=== PATIENT | female | born 1965 | race Caucasian/White ===

== ENCOUNTER → 2020-06-26 02:13 | Outpatient (CLI) | payer BC, SELFPAY ==
[2020-06-26 22:46] LABS: SARS-CoV-2 RNA PCR Negative
== END ==
PROVIDERS: Visit Provider Urology
DX: Z01.812 Encounter for preprocedural laboratory examination (principal); Z20.822 Contact with and (suspected) exposure to COVID-19
CPT/HCPCS: C9803; U0003; U0005

== ENCOUNTER 2020-06-26 14:41 | Outpatient (CLI) | payer BC, SELFPAY ==
--- NOTE | ~2020-06-26 | MR_ITS ---
EXAMINATION: MR foot RT wo con DATE: 06/26/2020 15:51 INDICATION: Chronic right foot pain. TECHNIQUE: Magnetic resonance imaging (MRI) of the right foot was performed without intravenous contr ast. Sequences included sagittal T1-weighted FSE and STIR FSE, long-axis PD-weighted FS FSE and PD-we ighted FSE, and short-axis PD-weighted FS FSE and T1-weighted FSE. COMPARISON: None FINDINGS: Bone alignment is normal. There is bone marrow edema in second proximal phalanx with surrou nding soft tissue swelling. There is moderate osteoarthritis of second tarsometatarsal joint and mild osteoarthritis of many of the other tarsometatarsal joints. There is moderate osteoarthritis of firs t metatarsophalangeal joint and mild osteoarthritis of some of the interphalangeal joints. Lisfranc l igament is intact. The flexor and extensor tendons are normal. There is variable fatty atrophy of all of the musculature. IMPRESSION: 1. Bone marrow edema in second proximal phalanx without visible fracture line, likely stress reaction . 2. Polyarticular osteoarthritis. Reviewed, dictated and finalized at location A. OL DRIVER IMPRESSION: 1. Bone marrow edema in second proximal phalanx without visible fracture line, likely stress reaction. 2. Polyarticular osteoarthritis.
== END 2020-06-26 14:42 ==
LOC: MICIMG 14:42
PROVIDERS: Visit Provider Podiatrist Foot & Ankle Surgery
DX: M19.071 Primary osteoarthritis, right ankle and foot (principal)
CPT/HCPCS: 73718

== ENCOUNTER 2020-06-29 01:13 | Day surgery (SDC) | payer BC, SELFPAY ==
--- NOTE | 2020-06-23 09:51 | PM.IMHP ---
H&P: HPI History of Present Illness Date/Time: 06/23/20 09:51 Chief Complaint: overactive bladder Narrative: Vickie Rick is a 55 year old female with overactive bladder and a successful InterStim trial with greater than 50% improvement in symptoms Review of Systems Review of Systems: All systems reviewed & are unremarkable except as noted in HPI and below PMFSH Past Medical History Medical History (Updated 06/23/20 @ 09:52 by Josue Kahn MD) URIOSTEGUI (dyspnea on exertion) Dyslipidemia Essential hypertension Obstructive sleep apnea Pulmonary hypertension Surgical History Surgical History (Updated 04/21/19 @ 15:22 by Savanna Ashton CMA) H/O tubal ligation History of carpal tunnel release History of cholecystectomy History of ear surgery Family History Family History (Updated 11/05/17 @ 14:54 by DOCTOR UNKNOWN) Mother Hypertension Family history of lung cancer Family history of malignant neoplasm of bone Father Family history of malignant neoplasm of breast in first degree relative Social History Social History Smoking status: Never smoker Alcohol intake: current Meds Home Medications and Allergies Home Medications Medication Instructions Recorded Confirmed Type mirabegron 50 mg tablet,extended 50 mg PO DAILY 12/08/19 06/21/20 History release 24 hr Allergies Allergy/AdvReac Type Severity Reaction Status Date / Time acetaminophen Allergy Severe MIGRAINES Verified 06/21/20 13:48 propranolol Allergy Severe SHAKES, Verified 06/21/20 13:48 NAUSEA AND VOMITING hydrocodone Allergy Mild Nausea Verified 06/21/20 13:48 propoxyphene Allergy Mild WORSENED Verified 06/21/20 13:48 HEADACHE sumatriptan Allergy Mild Nausea Verified 06/21/20 13:48 Beta-Blockers Allergy Unknown PROPRANOLOL-WORSENED Verified 06/21/20 13:48 (Beta-Adrenergic Bloc HEADACHE butorphanol Allergy Unknown Unknown Verified 06/21/20 13:48 meperidine Allergy Unknown Nausea Verified 06/21/20 13:48 rizatriptan Allergy Unknown Nausea Verified 06/21/20 13:48 Exam Const: General: cooperative HENMT: Head: normal to inspection Face and sinus: normal facial exam Eyes: General: appearance normal, both eyes and all related structures Neck: Neck: normal visual inspection Resp: Effort & Inspection: normal respiratory effort and able to speak in complete sentences GI: Inspection: normal to inspection Skin: General skin exam: normal color Neuro: General: patient oriented x3 Assessment and Plan Assessment and plan (1) Overactive bladder: Code(s): N32.81 - Overactive bladder Status: Acute Assessment and Plan: InterStim implant
[2020-06-25 16:16] VITALS: BMI 45.7
--- NOTE | ~2020-06-29 | XR_ITS ---
EXAMINATION: XR fl neurostim insert<1hr EXAM DATE: 06/29/2020 11:10 INDICATION: InterStim phase I and 2. TECHNIQUE: Fluoroscopy used during XR fl neurostim insert<1hr performed by Dr. Josue Kahn MD . The DAP for this procedure was 1.24 mGym2. FINDINGS: Frontal image demonstrates a neural stimulator lead projecting through sacral neural kurt jordy, could be right S3-4 assuming side marker is correct. Correlate with procedure note. IMPRESSION: Fluoroscopy used during XR fl neurostim insert<1hr. Reviewed, dictated and finalized at location B. ASS TRIMMER
--- NOTE | 2020-06-29 07:17 | WPDHPUPDATE1 ---
History and Physical Update Update Date/Time: 06/29/20 07:17 History and Physical has been reviewed, including an updated exam of the patient. There are NO changes in the patient's condition. Risks, benefits, and alternatives have been discussed and questions answered. Patient agrees to proceed with procedure.
--- NOTE | 2020-06-29 08:28 | WPDANESEPPF ---
Anes - Initial Pre Proc Eval Procedure: Operation Date: 06/29/20 10:15 Proposed Procedures p Interstim Phase One and Two Combined - Josue Kahn MD Date/Time: 06/29/20 08:28 Surgeon: Josue Kahn MD Pre Op Diagnosis: overactive bladder Patient Data Age: 55 Gender: F Height: 1.57 m Weight: 113.4 kg Allergies Allergy/AdvReac Type Severity Reaction Status Date / Time acetaminophen Allergy Severe MIGRAINES Verified 06/29/20 08:29 propranolol Allergy Severe SHAKES, Verified 06/29/20 08:29 NAUSEA AND VOMITING hydrocodone Allergy Mild Nausea Verified 06/29/20 08:29 propoxyphene Allergy Mild WORSENED Verified 06/29/20 08:29 HEADACHE sumatriptan Allergy Mild Nausea Verified 06/29/20 08:29 Beta-Blockers Allergy Unknown PROPRANOLOL-WORSENED Verified 06/29/20 08:29 (Beta-Adrenergic Bloc HEADACHE butorphanol Allergy Unknown Unknown Verified 06/29/20 08:29 meperidine Allergy Unknown Nausea Verified 06/29/20 08:29 rizatriptan Allergy Unknown Nausea Verified 06/29/20 08:29 Home Medications Medication Instructions Recorded Confirmed Type mirabegron 50 mg tablet,extended 50 mg PO DAILY 12/08/19 06/25/20 History release 24 hr omeprazole 40 mg PO DAILY 06/25/20 06/25/20 History Patient hx anesthesia problems: none Family hx anesthesia problems: none PMFSH Past Medical History Medical History (Updated 06/29/20 @ 08:30 by Oliver Smith MD) Depression URIOSTEGUI (dyspnea on exertion) Dyslipidemia Essential hypertension Morbid obesity with BMI of 50.0-59.9, adult Obstructive sleep apnea Pulmonary hypertension Ulcerative colitis Surgical History Surgical History (Updated 04/21/19 @ 15:22 by Savanna Ashton CMA) H/O tubal ligation History of carpal tunnel release History of cholecystectomy History of ear surgery Family History Family History (Updated 11/05/17 @ 14:54 by DOCTOR UNKNOWN) Mother Hypertension Family history of lung cancer Family history of malignant neoplasm of bone Father Family history of malignant neoplasm of breast in first degree relative Social History Social History Smoking status: Never smoker Alcohol intake: current Living arrangements: with family Spiritual care concerns: No Anes - Eval Final PreProcedure Day of Procedure 06/29/20 08:28 Patient weight: morbidly obese Heart: regular rate and rhythm Lungs: clear to auscultation and normal air movement Airway: Mallampati scale class II Neurological: alert and oriented Last oral intake: >/= 8 hours ASA classification: III Emergent: no Anesthetic plan: proceed Anesthesia type and monitoring: general LMA and ETT Informed Consent: The patient's anesthetic plan and its attendant risks and benefits were discussed with the patient/family/POA. Questions were solicited and answers provided to the satisfaction of the patient/family/POA.
[2020-06-29] MEDS: KETOROLAC 30 MG/ML VIAL (*BKC) IV PUSH (08:54)
[2020-06-29] MEDS: LACTATED RINGERS 1,000 ML 30 ML IV CONT ×2 (08:57→11:35)
[2020-06-29 09:10] VITALS: BP 112/95; PULSE 71; RESP 18; TEMP 36.7; O2SAT 97
[2020-06-29] MEDS: ceFAZolin 2 GM/D5W 50 ML 2 GM/50 ML BAG IVPB (10:35)
[2020-06-29] MEDS: ceFAZolin SODIUM 1 GM VIAL IV PUSH (10:35)
[2020-06-29] MEDS: BUPIVACAINE/EPINEPHRINE 0.25% 50 ML VIAL 20 ML INFILTRATE (10:51)
--- NOTE | 2020-06-29 11:24 | PM.PROC ---
Procedure Note - Detailed Date of procedure: 06/29/20 Pre-op diagnosis: overactive bladder Procedure performed: Placement of sacral Fluoroscopic guidance for needle placement Placement of implantable pulse generator Complex neurostimulator programming and impedance check Description of procedure: This patient has undergone a successful InterStim trial. He presents today for placement of a permanent device. Understanding the risks of bleeding, infection, lack of efficacy, need for repeat procedures, need for revision. They agree to proceed Dear correctly identified and informed consent was obtained. There brought to the operating room. Placed in the prone position. There given appropriate anesthesia. There prepped and draped in a sterile fashion. A time-out performed. I used fluoroscopy to identify my sacral landmarks in the AP and lateral orientation. I anesthetized the skin. I into the sacral foramen on the left and the right. I monitored the needle fluoroscopy. I entered right and left S3 foramen. I stimulated the needle and got appropriate response at low thresholds. I made a skin willam. I placed a stylet and the lead introducer sheath. I then placed and deployed by lead again under fluoroscopy. I marked out the site of the future pulse generator. I anesthetized the skin. I made an incision. I created a subcutaneous pocket. I obtained hemostasis. I irrigated out the wound. I then tunneled the lead towards this pocket. Appropriate connections were made between the lead and battery. The battery was programmed. It was placed in the pocket. Impedances were checked and found to be normal. I once again assured hemostasis. I irrigated out all wounds. I closed the subcu with 2 0 Vicryl. Skin with 4 0 Vicryl. Glue was applied. They were then awakened and transferred to the PACU in stable condition. Implants: Neuromodulation device Anesthesia: MAC and local Surgeon: Josue Kahn MD Drains: No Packing: No Pathology: none sent Complications: No immediate complications Condition: stable Disposition: PACU
[2020-06-29 11:35] VITALS: BP 118/69; PULSE 80; RESP 19; O2SAT 95
[2020-06-29 12:05] VITALS: BP 164/75; PULSE 63; RESP 16; O2SAT 93
[2020-06-29 12:35] VITALS: BP 134/58; PULSE 66; RESP 16; O2SAT 94
[2020-06-29] MEDS: oxyCODONE HCL (*CRX) 5 MG TAB IR PO (12:38)
[2020-06-29 13:00] VITALS: BP 161/82; PULSE 55; RESP 16
--- NOTE | 2020-06-29 13:08 | SUR.PHASEII ---
SKID ADZER FROM INTERSTIM INSTRUCTED PATIENT.
== END 2020-06-29 13:09 | disposition home or self-care (01) ==
PROVIDERS: Visit Provider Urology
PROC: (CPT 64581; principal; 2020-06-29 10:15)
DX: N32.81 Overactive bladder (principal); I10 Essential (primary) hypertension; E78.5 Hyperlipidemia, unspecified; G47.33 Obstructive sleep apnea (adult) (pediatric); I27.20 Pulmonary hypertension, unspecified; K51.90 Ulcerative colitis, unspecified, without complications; E66.01 Morbid (severe) obesity due to excess calories; Z68.43 Body mass index [BMI] 50.0-59.9, adult
CPT/HCPCS: 64581; 64590; A9270; C1767; C1778; C1787; J0131; J0690; J1100; J1885; J2250; J2405; J2704; J3010; J7120

== ENCOUNTER 2020-07-13 18:11 | Emergency (ER) | payer BC, SELFPAY ==
--- NOTE | ~2020-07-13 | CT_ITS ---
EXAMINATION: CT brain wo con EXAM DATE: 07/13/2020 18:56 INDICATION: Dizziness. Headaches. TECHNIQUE: Spiral CT of the head was performed without contrast. Axial, coronal and sagittal images were reviewed. The dose-length product (DLP) for this examination was 605.33 mGy-cm. The exposure w as tailored according to patient size, and iterative reconstruction (ASIR) was used as additional dos e reduction technique. Comparison is made to prior examination from 09/02/2017. FINDINGS: There is no acute intraparenchymal hemorrhage. No evidence of intraparenchymal brain mass lesion. No evidence of acute infarction. There is no mass effect or midline shift. The ventricles are normal in size. There are no extra-axial collections. There are no acute calvarial fractures. T he orbits are unremarkable. Soft tissue is unremarkable. Mild mucoperiosteal thickening. There is no interval change. IMPRESSION: 1. Unremarkable head CT examination. Reviewed, dictated and finalized at location A.
--- NOTE | ~2020-07-13 | XR_ITS ---
EXAMINATION: XR chest 1V portable EXAM DATE: 07/13/2020 18:51 INDICATION: Dizziness. TECHNIQUE: Portable AP frontal chest x-ray was obtained. Comparison is made to prior examination from 02/15/2019. FINDINGS: Mild cardiomegaly and pulmonary vascular congestion. No confluent consolidation, pneumothor ax or pleural effusion suspected. There are no osseous abnormalities identified. IMPRESSION: Cardiomegaly, pulmonary vascular congestion. Reviewed, dictated and finalized at location A.
[2020-07-13 18:25] VITALS: BP 182/82; PULSE 74; RESP 18; TEMP 36.4; O2SAT 98
--- NOTE | 2020-07-13 18:29 | ECG_ITS ---
Measurements Intervals [place] Rate: 74 P: 51 HI: 184 QRS: -1 QRSD: 89 T: 3 QT: 401 QTc: 445 Interpretive Statements SINUS RHYTHM VOLTAGE CRITERIA FOR LVH BASELINE ARTIFACT- III, AVF, V5 BORDERLINE ECG Electronically Signed On 07-13-2020 18:44:23 CDT by Rober Munguia D.O.
[2020-07-13 18:30] VITALS: BP 182/82; PULSE 76; RESP 18; TEMP 36.3; O2SAT 98
[2020-07-13 18:48] LABS: Basophils Absolute Auto 0.1 K/mm3 (0.0-0.1); Basophils Percent Auto 0.7 % (0.2-1.2); Eosinophils Absolute Auto 0.3 K/mm3 (0-0.3); Eosinophils Percent Auto 3.4 % (0-4.4); Hematocrit 44.7 % (37.0-47.0); Hemoglobin 14.4 g/dL (12.0-15.0); Immature Granulocyte Absolute 0.12 K/mm3 (0.00-0.031); Immature Granulocyte Percent A 1.5 % (0-0.5); Lymphocytes Absolute Auto 2.56 K/mm3 (0.9-3.2); Lymphocytes Percent Auto 31.2 % (18.3-44.2); Mean Corpuscular HGB Conc 32.2 g/dl (32-36); Mean Corpuscular Hemoglobin 30.3 pg (26-34); Mean Corpuscular Volume 94.1 fl (80-100); Mean Platelet Volume 9.7 fl (7.4-10.4); Monocytes Absolute Auto 0.6 K/mm3 (0.1-0.6); Monocytes Percent Auto 6.8 % (2.6-8.5); Neutrophils Absolute Auto 4.6 K/mm3 (1.3-6.7); Neutrophils Percent Auto 56.4 % (45.5-73.1); Platelet Count Result 225 k/mm3 (150-375); Red Blood Count 4.75 M/mm3 (4.2-5.4); Red Cell Distribution Width 13.4 % (11.5-14.5); White Blood Count 8.2 K/mm3 (4.5-10.0)
--- NOTE | 2020-07-13 18:58 | PC.NURSE ---
patient to CT
[2020-07-13 19:15] LABS: Alanine Aminotransferase 34 U/L (4-35); Albumin Level 3.8 g/dL (3.5-5.1); Alkaline Phosphatase 95 U/L (38-126); Anion Gap 5 mmol/L (8-16); Aspartate Amino Transferase 29 U/L (14-36); Bilirubin,Total 0.3 mg/dL (0.2-1.3); Blood Urea Nitrogen 18 mg/dL (7-17); Calcium 8.8 mg/dL (8.4-10.2); Carbon Dioxide 27 mmol/L (22-30); Chloride 106 mmol/L (98-107); Estimated CRCL calculation 91 ml/min; Estimated Glomerular Filt Rate > 60; Glucose 108 mg/dL (65-105); Potassium 3.8 mmol/L (3.4-5.0); Sodium 138 mmol/L (137-145)
--- NOTE | 2020-07-13 19:19 | PC.NURSE ---
Report received from CORTNEY Persaud. Assumed care of patient at this time.
--- NOTE | 2020-07-13 19:25 | ED.DIZZY ---
HPI - Dizziness General Chief Complaint: Dizziness Stated Complaint: dizziness/nausea/cough Time Seen by Provider: 07/13/20 18:20 Source: patient, family and RN notes reviewed Mode of arrival: ambulatory Limitations: no limitations History of Present Illness HPI Narrative: Patient is 55 years old white female present with dizziness, nausea and vomiting, intermittent, 1 week ago, was getting better then got worse today. Patient reports that everything fingers spans when she move, get better at rest. Patient also complaining of productive cough with green sputum for 1-1/2-week. Patient status post second dose of Pfizer vaccine 1 week ago. History of GERD, patient does not smoke or drink or uses drugs. Patient denies any fever, chills, chest pain, shortness of breath, back pain, urinary symptoms. Patient reports a history of vertigo years ago. Related Data Home Medications Medication Instructions Recorded Confirmed mirabegron 50 mg tablet,extended 50 mg PO DAILY 12/08/19 06/29/20 release 24 hr omeprazole 40 mg PO DAILY 06/25/20 06/29/20 Allergies Allergy/AdvReac Type Severity Reaction Status Date / Time propranolol Allergy Severe SHAKES, Verified 07/13/20 18:49 NAUSEA AND VOMITING hydrocodone Allergy Mild Nausea Verified 07/13/20 18:49 propoxyphene Allergy Mild WORSENED Verified 07/13/20 18:49 HEADACHE sumatriptan Allergy Mild Nausea Verified 07/13/20 18:49 Beta-Blockers Allergy Unknown PROPRANOLOL-WORSENED Verified 07/13/20 18:49 (Beta-Adrenergic Bloc HEADACHE butorphanol Allergy Unknown Unknown Verified 07/13/20 18:49 meperidine Allergy Unknown Nausea Verified 07/13/20 18:49 rizatriptan Allergy Unknown Nausea Verified 07/13/20 18:49 Review of Systems Review of Systems: Narrative: CONSTITUTIONAL: Denies fever, chills, or sweats. EYES: Denies visual changes, redness, or discharge. ENT: Denies rhinorrhea, congestion, sore throat, or otalgia. CARDIOVASCULAR: Denies chest pain, palpitations, or edema. RESPIRATORY: Denies cough or dyspnea. GASTROINTESTINAL: Denies abdominal pain, nausea, vomiting, or diarrhea. GENITOURINARY: Denies dysuria or hematuria. SKIN: Denies rash or itching. MUSCULOSKELETAL: Denies back pain, joint pain, or myalgia. NEUROLOGIC: Denies headache, numbness, or weakness. PSYCHIATRIC: Denies anxiety or depression. PMFSH Past Medical History Medical History Depression URIOSTEGUI (dyspnea on exertion) Dyslipidemia Essential hypertension Morbid obesity with BMI of 50.0-59.9, adult Obstructive sleep apnea Pulmonary hypertension Ulcerative colitis Surgical History Surgical History H/O tubal ligation History of carpal tunnel release History of cholecystectomy History of ear surgery Family History Family History Mother Hypertension Family history of lung cancer Family history of malignant neoplasm of bone Father Family history of malignant neoplasm of breast in first degree relative Social History Social History Smoking status: Never smoker Alcohol intake: current Spiritual care concerns: No Exam Narrative: Exam Narrative: General appearance: Well-developed, well-nourished Skin: Normal color Head: Normocephalic, nontraumatic Eyes: Clear conjunctiva ENT: Oropharynx normal, ears normal, nose normal, maxillary facial tenderness Neck: Supple, nontender Chest and respiratory: Airway patent, no respiratory distress, no accessory muscle use Heart: Regular rate/rhythm Abdomen: Soft, nontender, no organomegaly, quiet bowel sounds Vascular: Normal peripheral pulses, normal capillary refill. Musculoskeletal: Normal range of motion, nontender back Neurologic: Alert and oriented ?3, VENEER MANUFACTURER is normal as tested, no gross motor deficit
[2020-07-13 19:26] LABS: Troponin I < 0.012 ng/mL (0.000-0.034)
[2020-07-13 19:27] VITALS: BP 162/76; PULSE 70
[2020-07-13 19:29] VITALS: BP 188/87; PULSE 70
[2020-07-13 19:32] VITALS: BP 203/95; PULSE 72
[2020-07-13] MEDS: ONDANSETRON INJ 4 MG/2 ML VIAL IV PUSH (19:40)
[2020-07-13] MEDS: MECLIZINE HCL 25 MG TABLET PO (19:40)
[2020-07-13] MEDS: diazePAM INJ (*CRX) 10 MG/2 ML SYRINGE 5 MG IV PUSH (19:41)
[2020-07-13 20:06] LABS: Add Urine Microscopic? YES; Appearance Urine Clear (Clear); Bilirubin Urine Negative (Negative); Blood Urine Negative (Negative); Color Urine Yellow (Yellow); Glucose Urine UA Negative (Negative); Ketones Urine Negative (Negative); Leukocyte Esterase Ur Trace LEU/UL (Negative); Mucus Urine Rare /lpf; Nitrate Urine Negative (Negative); Protein Urine Negative (Negative); Specific Grav Ur 1.014 (1.001-1.035); Squamous Epithelial Cell Urine Rare /hpf (Few); Urobilinogen Urine Negative mg/dL (<2.0)
[2020-07-13 20:18] LABS: Amphetamine Screen Urine Negative (Negative); Barbiturate Screen Urine Negative (Negative); Benzodiazepines Screen Urine Negative (Negative); Cannabinoid Screen Urine Negative (Negative); Cocaine Screen Urine Negative (Negative); Methadone Screen Urine Negative (Negative); Opiate Screen Urine Negative (Negative); Phencyclidine Screen Urine Negative (Negative)
[2020-07-13 20:45] VITALS: BP 105/74; PULSE 71; RESP 20; O2SAT 97
== END 2020-07-13 20:55 | disposition home or self-care (01) ==
PROVIDERS: Emergency Provider Emergency Medicine; PCP Family Medicine
DX: R42 Dizziness and giddiness (principal); J01.00 Acute maxillary sinusitis, unspecified; K21.9 Gastro-esophageal reflux disease without esophagitis; I10 Essential (primary) hypertension; E78.5 Hyperlipidemia, unspecified; G47.33 Obstructive sleep apnea (adult) (pediatric); I27.20 Pulmonary hypertension, unspecified; F41.9 Anxiety disorder, unspecified; F32.9 Major depressive disorder, single episode, unspecified; R94.31 Abnormal electrocardiogram [ECG] [EKG]
CPT/HCPCS: 36415; 70450; 71045; 80053; 80307; 81001; 84484; 85025; 93005; 96374; 96375; 99284; A9270; J2405; J3360

== ENCOUNTER 2021-04-08 09:32 | Outpatient (CLI) | payer BC, SELFPAY ==
--- NOTE | 2021-04-08 09:41 | ECHO_ITS ---
Patient Info Name: Vickie Rick Age: 55 years : 1965 Gender: Female Ht: 62 in Wt: 255 lbs BSA: 2.32 m2 HR: 90 bpm BP: 155 / 112 mmHg Technical Quality: Fair Exam Date: 04/08/2021 9:54 AM Exam Location: [facility] Patient Status: Outpatient Admit Date: 04/08/2021 Staff Ordering Physician: Rober Munugia DO [employer] Farmworker: Alexandrea Go RDCS Attending Provider: Rober Munguia DO Referring Physician: Ezra LONGORIA; Exam Type: CA echo doppler color flow Study Info Indications R06.00 - Dyspnea, unspecified Complete two-dimensional, color flow and Doppler transthoracic echocardiogram is performed. Summary 1. Complete two-dimensional, color flow and Doppler transthoracic echocardiogram is performed. 2. Left ventricular chamber dimension is normal. 3. Left ventricular systolic function is normal, estimated at 55-60%. 4. The left ventricular diastolic function is grade I diastolic dysfunction. 5. E/e' 15 is elevated. 6. Left atrial chamber dimension is mildly enlarged. 7. No pulmonary hypertension, estimated pulmonary arterial systolic pressure is 32 mmHg. Left Ventricle E/e' 15 is elevated. Left ventricular chamber dimension is normal. Left ventricular systolic function is normal, estimated at 55-60%. The left ventricular diastolic function is grade I diastolic dysfunction. Right Ventricle Right ventricular systolic function is normal and with normal TAPSE 2.0 cm. Right ventricular chamber dimension is normal. Left Atria Left atrial chamber dimension is mildly enlarged. Right Atria Right atrial chamber dimension is normal. Aortic Valve The aortic valve is trileaflet. There is no aortic valve stenosis. There is no aortic valve regurgitation. Pulmonic Valve There is no pulmonic regurgitation. Mitral Valve There is no mitral valve stenosis. There is no mitral valve regurgitation. Tricuspid Valve There is no tricuspid valve regurgitation. No pulmonary hypertension, estimated pulmonary arterial systolic pressure is 32 mmHg. Pericardium/Pleural There is no pericardial effusion. Inferior Vena Cava Normal inferior vena cava with >50% collapse upon inspiration consistent with normal right atrial pressure, 5 mmHg. Aorta The aortic root size at the sinus of Valsalva is normal. Left Ventricular Outflow Tract Name Value Normal LVOT 2D LVOT Diameter 2.0 cm LVOT Doppler LVOT Peak Gradient 5 mmHg LVOT Mean Gradient 3 mmHg LVOT VTI 25 cm LVOT VTI/AV VTI Ratio 0.8 LVOT Stroke Volume 75 ml LVOT CO 5.4 l/min LVOT CI 2.3 l/min/m2 Pulmonic Valve Name Value Normal RVOT Doppler RVOT Peak Gradient 2
== END 2021-04-08 09:33 | disposition home or self-care (01) ==
LOC: ANHCARD 09:35
PROVIDERS: PCP Internal Medicine Gastroenterology; Visit Provider Internal Medicine Cardiovascular Disease
DX: R06.00 Dyspnea, unspecified (principal)
CPT/HCPCS: 93306

== ENCOUNTER 2024-12-20 15:32 | Outpatient (CLI) | payer OTHER, SELFPAY ==
--- NOTE | ~2024-12-20 | XR_ITS ---
EXAMINATION: XR lumbar spine 2-3V DATE: 12/20/2024 15:57 INDICATION: Chronic lower back pain TECHNIQUE: 3 images of the lumbar spine were obtained. COMPARISON: None. FINDINGS: Right-sided generator with lead projecting over the right hemipelvis. Cholecystomy clips are present. There is bowel gas and stool projecting over the pelvis which limits evaluation. There are a few less than 1.0 cm calcifications projecting over the pelvis which may represent phleboliths, however, a distal ureteral stone or bladder stone or possible. Lumbar vertebral body heights are within normal limits. No compression fracture in the lumbar spine. Grade 1 anterolisthesis of L4 on L5. Grade 1 retrolisthesis of L5 on S1. Moderate degenerative change in the mid and lower lumbar facet joints. Moderate joint space narrowing at the L5-S1 level. Mild joint space narrowing at the L4-L5 level. Bones appear osteopenic. There is a 2.8 cm lucency projecting over a femoral head seen in the cone-down lumbosacral view. Differential includes artifact from overlapping structures versus lytic bone lesion. IMPRESSION: 1. No compression fracture in the lumbar spine. 2. Grade 1 anterolisthesis of L4 on L5. 3. Grade 1 retrolisthesis of L5 on S1. 4. Moderate degenerative change in the mid and lower lumbar spine. 5.There is a 2.8 cm lucency projecting over a femoral head seen in the cone-down lumbosacral view. Differential includes artifact from overlapping structures versus lytic bone lesion. Dedicated x-rays of the femurs is recommended. If symptoms persist or worsen, consider a CT of the lumbar spine for further assessment. Reviewed, dictated and finalized at location Q. IMPRESSION: 1. No compression fracture in the lumbar spine. 2. Grade 1 anterolisthesis of L4 on L5. 3. Grade 1 retrolisthesis of L5 on S1. 4. Moderate degenerative change in the mid and lower lumbar spine. 5.There is a 2.8 cm lucency projecting over a femoral head seen in the cone-cristian n lumbosacral view. Differential includes artifact from overlapping structures versus lytic bone lesion. Dedicated x-rays of the femurs is recommended. If symptoms persist or worsen, consider a CT of the lumbar spine for further as sessment.
--- OUTSIDE RECORDS SUMMARY | 2024-12-20 15:36 | XMS_ITS | Clinical Summary ---
Author Organization [facility] Address [address] [place] [address] Phone Care Team Providers Care Factory Worker Name Role Phone Unavailable Primary Care Provider Unavailabl e Encounters Date Type Department Care Team Description 12/11/2024 5:02 PM CDT - 12/11/2024 5:22 PM CDT Emergency [facility] [address] [id number] Discharge Disposition: Left without being seen from Last 3 Months Social History Tobacco Use Types Packs/Day Years Used Date Smoking Tobacco: Never Assessed Comments Unknown Sex and Gender Information Value Date Recorded Sex Assigned at Not on file Legal Sex Female 1:59 PM CDT Gender Identity Not on file Sexual Orientation Not on file Plan of Treatment Health Maintenance Due Date Last Done Comments Pre-Diabetes and Diabetes Screening 1965 DTAP/TDAP/TD VACCINES (1 - Tdap) 1982 HPV/Cotest (21-29) 1984 CERVICAL CANCER SCREENING 1993 HPV/Cotest (30-65) 1993 PAP SMEAR 1993 BREAST CANCER SCREENING 2003 COLORECTAL SCREENING 2008 Colorectal Cancer Screening 2008 FIT-DNA Q 3 years 2008 FIT/FOBT Q 1 year 2008 Flex Sig/CT Colonography Q 5 years 2008 ZOSTER VACCINE (1 of 2) 2013 RSV VACCINE (60+ or ) (1 - Risk 60-74 years 1-dose series) 2023 COVID-19 Vaccine ( - 2023- season) 2023, 06/17/2020 INFLUENZA VACCINE (#1) 2024 , 01/26/2020, 01/10/2015
--- OUTSIDE RECORDS SUMMARY | 2024-12-20 15:36 | XMS_ITS | Clinical Summary ---
Author Organization 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 Gender Identity Not on file Sexual Orientation Not on file Plan of Treatment Health Maintenance Due Date Last Done Comments Hepatitis C Virus (HCV) Screening 1965 TdaP Immunization 1965 Pap Smear 1984 Cervical Cancer Screening (CCS) 1993 HPV/Cotest 1993 Cologuard 2008 Colonoscopy 2008 Colorectal Cancer Screening 2008 Immunochemical Fecal Occult Blood 2008 Pneumococcal Immunization (5 0+ years) (1 of 1 - PCV) 2013 Zoster Immunization (1 of 2) 2013 SARS-COV-2 Immunization (2 - season) 2023 06/17/2020 Influenza Immunization (#1) 2024 10/0 11/2019, 01/10/2015 Respiratory Syncytial Virus (RSV) Immunization (Adult) (1 - 1-dose 75+ series) 2038 Hepatitis B Immunization Aged Out No longer eligible based on patient's age to complete this topic Human Papillomavirus (HPV) Immunization Aged Out No longer eligible b ased on patient's age to complete this topic Meningococcal Immunization (ACWY) Aged Out No longer eligible b ased on patient's age to complete this topic Rotavirus Immunization Aged Out No lo nger eligible based on patient's age to complete this topic
--- OUTSIDE RECORDS SUMMARY | 2024-12-20 15:36 | XMS_ITS | Clinical Summary ---
Author Organization [facility] Address [address] [place] [id number] Care Team Providers Care Green Chain Off Bearer Name Role Phone Rao Stroud MD Primary Care Provider + Allergies Active Allergy Reactions Criticality Noted Date Comments Acetaminophen Dizziness,Nausea And Vomiting Low 03/26/2012 Dizziness/Light Headed Ciprofloxacin Itching,Swelling Medium 03/26/2012 Itching Meperidine Unknown 06/05/2022 Hydrocodone Dizziness,Nausea And Vomiting Low 03/26/2012 Dizziness/Light Headed Propoxyphene Stomach upset Low 03/26/2012 Stomach/GI Upset Propranolol Hives,Nausea And Vomiting Medium 03/26/2012 Hives Sumatriptan Unknown,Dizziness,It chin g,Nausea And Vomiting,Rash Medium 03/26/2012 Dizziness/Light Headed Medications aspirin 81 mg enteric coated tabletIndications: cerebral ischemia Take 1 tablet (81 mg total) by mouth daily 30 tablet 06/08/19 23 Active cyclobenzaprine (FLEXERIL) 10 mg tabletIndications: Fibromyalgia Take 1 tablet (10 mg total) by mouth nightly 90 tablet 1 07/03/19 23 Active Additional Information Patient not taking.Reported on 01/07/2023 atorvastatin (LIPITOR) 40 mg tabletIndications: Mixed hyperlipidemia Take 1 tablet (40 mg total) by mouth daily 90 tablet 3 07/03/19 23 Active hydroCHLOROthiazid e (HYDRODIURIL) 25 mg tabletIndications: Essential hypertension Take 1 tablet (25 mg total) by mouth daily 90 tablet 1 07/03/19 23 Active lisinopriL (PRINIVIL,ZESTRIL) 20 mg tabletIndications: Essential hypertension Take 2 tablets (40 mg total) by mouth daily 180 tablet 1 08/06/19 23 Active amLODIPine (NORVASC) 5 mg tabletIndications: Essential hypertension Take 1 tablet (5 mg total) by mouth daily 90 tablet 1 08/06/19 23 Active meclizine (ANTIVERT) 25 mg tabletIndications: Vertigo Take 1 tablet (25 mg total) by mouth 3 (three) times a day as needed for dizziness 30 tablet 3 11/06/19 23 Active ketoconazole (NIZORAL) 2 % creamIndications:C andidiasis of genitalia Apply topically 2 (two) times a day 60 g 1 11/06/19 Active QUEtiapine (SEROquel) 50 mg tabletIndications: FRANK (generalized anxiety disorder) Take 0.5 tablets (25 mg total) by mouth nightly for 4 days, THEN 1 tablet (50 mg total) nightly. 62 tablet 2 11/06/19 Active Additional Information Patient not taking.Reported on 01/07/2023 topiramate (TOPAMAX) 25 mg tablet Take 1 tablet (25 mg total) by mouth 2 (two) times a day 60 tablet 11 11/12/[address] (CYMBALTA) 30 mg capsuleIndications :FRANK (generalized anxiety disorder),Moderate episode of recurrent major depressive disorder (HCC) Take 1 capsule (30 mg total) by mouth 2 (two) times a day 180 capsule 1 01/08/[address] (PROTONIX) 40 mg EC tabletIndications: Gastroesophageal reflux disease without esophagitis Take 1 tablet (40 mg total) by mouth daily 90 tablet 4 01/08/20 23 Active ondansetron ODT (ZOFRAN-ODT) 4 mg disintegrating tablet Take 1 tablet (4 mg total) by mouth every 8 (eight) hours as needed for nausea or vomiting 20 tablet 02/03/20 24 Active acetaminophen-code ine (TYLENOL with CODEINE #3) 300-30 mg per tablet Take 1-2 tablets by mouth every 6 (six) hours as needed for pain 15 tablet 02/03/20 24 Active Active Problems Problem Noted Date Diagnosed Date Gastroesophageal reflux disease without esophagi tis 01/07/2023 Assessment & Plan (01/07/2023 4:49 PM CDT): - uncontrolled - increase protonix to 40mg daily - f/u in 4 mo or sooner prn Non-recurrent acute suppurat vickie otitis media of both ears without spontaneous rupture of tympanic membranes 08/05/2022 Assessment & Plan (08/05/2022 4:42 PM CDT): - augmentin bid x 10 days followed by fluconazole Morbid (severe) obesity due to excess calories 0 07/02/2022 Assessment & Plan (01/07/2023 4:49 PM CDT): - rec regular exercise and weight loss Assessment & Plan (11/05/2022 4:57 PM CDT): - rec healthy diet and regular exercise Body mass index (BMI) 50.0-59.9, adult Annual physical exam 07/02/2022 Assessment & Plan (07/02/2022 2:21 PM CDT): - Reviewed with the patient BMI, blood pressure, diet, exercise, and encouraged healthy lifestyle choices. - Screened for high risk behaviors, diet and exercise habits, and symptoms of depression. - reviewed screening labs - encouraged regular exercise and weight loss Abdominal pain 07/02/2022 Assessment & Plan (07/02/2022 2:22 PM CDT): - uncontrolled - suspect large hernia but difficult exam - given pain and difficult exam will get CT abd to look for hernia vs. Mass - will ref to gen surg after CT pending results Essential hypertension 07/02/2022 Assessment & Plan (01/07/2023 4:47 PM CDT): - stable - continue current medication Assessment & Plan (11/05/2022 4:54 PM CDT): - stable - continue current medication Assessment & Plan (08/05/2022 4:41 PM CDT): - uncontrolled - add amlodopine 5mg daily - f/u in 2 mo Assessment & Plan (07/02/2022 2:22 PM CDT): - uncontrolled - continue lisinopril - add HCTZ FRANK (generalized anxiety disorder) 07/02/2022 Assessment & Plan (01/07/2023 4:47 PM CDT): - uncontrolled - continue current meds - if sx continue after home situation improves over next month then will consider increasing seroquel dose. Assessment & Plan (11/05/2022 4:54 PM CDT): - uncontrolled - continue cymbalta - add seroquel 25mg qhs x 4 days then increase to 50mg qhs - rec pt see counselor, she wants to think about it. - f/u in 6 wks Assessment & Plan (08/05/2022 4:41 PM CDT): - stable - continue current medication Assessment & Plan (07/02/2022 2:23 PM CDT): - uncontrolled - will switch from prozac to cymbalta to get added benefit of pain modulation Mixed hyperlipidemia 07/02/2022 Assessment & Plan (01/07/2023 4:47 PM CDT): - stable - continue current medication Assessment & Plan (11/05/2022 4:54 PM CDT): - stable - continue current medication Assessment & Plan (07/02/2022 2:23 PM CDT): - stable - continue current medication Moderate episode of recurrent major depressive d isorder 07/02/2022 Assessment & Plan (01/07/2023 4:47 PM CDT): - uncontrolled - continue current meds - if sx continue after home situation improves over next month then will consider increasing seroquel dose. Assessment & Plan (11/05/2022 4:54 PM CDT): - stable - continue cymbalta Assessment & Plan (08/05/2022 4:45 PM CDT): - stable but still sx - continue current medication - consider adding wellbutrin next visit if no improvement with cymbalta Assessment & Plan (07/02/2022 2:23 PM CDT): - uncontrolled - will switch from prozac to cymbalta to get added benefit of pain modulation Fibromyalgia 07/02/2022 Assessment & Plan (01/07/2023 4:48 PM CDT): - rec pt exercise in pool to offload joint pain Assessment & Plan (07/02/2022 2:23 PM CDT): - uncontrolled - start flexeril at night - f/u in 1 mo Chronic migraine without aur a without status migrainosus, not intractable 07/02/2022 Assessment & Plan (08/05/2022 4:42 PM CDT): - stable, some improvement with cymbalta - continue current medication Assessment & Plan (07/02/2022 2:23 PM CDT): - uncontrolled - start imitrex prn Vertigo 06/05/2022 Assessment & Plan (11/05/2022 4:53 PM CDT): - rec pt f/u with PT as rec by neuro Assessment & Plan (08/05/2022 4:41 PM CDT): - uncontrolled, some benefit from meclizine - likely worsened this week due to OM - will ref to neurology for eval Unsteady gait Immunizations Immunization Administration Dates Next Due Influenza, Quadrivalent, Spl it, Intramuscular 01/10/2015 Influenza, Quadrivalent, Spl it, Preservative Free, Intramuscular 01/07/2023,01/26/2020 Influenza, Unspecified 07/02/2022(Deferr ed: Patient Refused),01/18/2021(Deferred: Patient Refused) Surgical History Surgery Date Site/Laterality Comments CHOLECYSTECTOMY 2000??? HYSTERECTOMY TUBAL LIGATION 1989 CARPAL TUNNEL RELEASE Medical History Medical History Date Comments GERD (gastroesophageal reflux disease) Depression Migraines Hypertension Sleep apnea Family History Medical History Relation Name Comments Cancer Father Pedro COPD Mother Mckenzie Cancer Mother Mckenzie Depression Mother Mckenzie Hypertension Mother Mckenzie Relation Name Status Comments Father Pedro Alive Mother Mckenzie Alive Social History Tobacco Use Types Packs/Day Years Used Date Smoking Tobacco: Never Smokeless Tobacco: Never Tobacco Cessation:Counseling Given: Not Answered AUDIT-C Answer Date Recorded Q1: How often do you have a drink containing alc ohol? Never 07/02/2022 Average Number of Drinks Not on file 023 Frequency of Binge Drinking Not on file 06/18 PHQ-2 Answer Date Recorded PHQ-2 Total Score (If total score is 3 or more points, staff should administer the PHQ-9) 3 07/02/2022 Personal Safety Answer Date Recorded Have you ever been in or are you currently in a harmful physical or emotional relationship or is someone making you feel afraid or unsafe? Denies 02/02/2024 Comments Unknown Sex and Gender Information Value Date Recorded Sex Assigned at Not on file Legal Sex Female 2:33 AM INSTRUMENTATION TECHNOLOGIST Gender Identity Not on file Sexual Orientation Not on file Obstetrics History Last Filed Vital Signs Vital Sign Reading Time Taken Comments Blood Pressure 186/94 02/03/2024 2:20 AM CDT Pulse 81 02/03/2024 2:20 AM CDT Temperature 36.4 C (97.6 F) 02/02/2024 6:57 PM CDT Respiratory Rate 20 02/03/2024 2:20 AM CDT Oxygen Saturation 98% 02/03/2024 2:20 AM CDT Inhaled Oxygen Concentration - - Weight 136 kg (299 lb 13.2 oz) 02/02/2024 8:09 P M CDT Height 154.9 cm (5' 1) 02/02/2024 6:57 PM CDT Body Mass Index 56.65 02/02/2024 6:57 PM CDT Plan of Treatment Health Maintenance Due Date Last Done Comments Breast Cancer Screening-Mammogram 1965 Hepatitis C Screening 1963 DTaP/Tdap/Td Vaccine (1 - Tdap) 1974 Hepatitis B Screening 1981 Zoster Vaccine (1 of 2) 2013 Depression Screening 07/03/2023 07/02/2022, 07/02/2022 Regular Well Visit/Exam 18-64 07/03/2023 07/02/2022 Covid-19 Vaccine (3 - 2023-2 5 season) 2023 07/06/2020, 06/17/2020 Influenza Vaccine (#1) 2024 , 01/26/2020, 01/10/2015 Colon Cancer Screening-DNA Stool 07/19/2025 07/19/2022 Pneumococcal vaccine <65 Aged Out No longer eligible based on patient's age to complete this topic Procedures Procedure Name Priority Date/Time Associated Diagnosis Comments STOOL DNA COLOGUARD Routine 07/19/2022 10:00 AM CDT Colon cancer screening from Last 3 Months or Most Recently Relevant to Health Maintenance Results * Stool DNA - Cologuard (07/19/2022 10:00 AM CDT) Stool DNA - Cologuard Negative Negative [employer] (CLIA #:[id number]) Comment: NEGATIVE TEST RESULT. A negative Cologuard result indicates a low likelihood that a colorectal cancer (CRC) or advanced adenoma (adenomatous polyps with more advanced pre-malignant features) is present. The chance that a person with a negative Cologuard test has a colorectal cancer is less than 1 in 1500 (negative predictive value >99.9%) or has an advanced adenoma is less than 5.3% (negative predictive value 94.7%). These data are based on a prospective cross-sectional study of 10,000 individuals at average risk for colorectal cancer who were screened with both Cologuard and colonoscopy. (Jared Clarke al, N Engl J Med 2014;370(14):7088-9601) The normal value (reference range) for this assay is negative. COLOGUARD RE-SCREENING RECOMMENDATION: Periodic colorectal cancer screening is an important part of preventive healthcare for asymptomatic individuals at average risk for colorectal cancer. Following a negative Cologuard result, the [employer] [place] [employer] and U.S. Multi-Society Task Force screening guidelines recommend a Cologuard re-screening interval of 3 years. References: [employer] Guideline for Colorectal Cancer Screening: https://www.cancer.org/cancer/eanxv-nrcinc-xrvhzg/fixsojyps-suvpwazzn-ubiazvu/ac s-rec ommendations.html.; Padilla DK, Cathy DISLA, Thea MCFARLAND, Colorectal Cancer Screening: Recommendations for Physicians and Patients from the U.S. Multi-Society Task Force on Colorectal Cancer Screening , Am J Gastroenterology 2017; 112:2521-8532. TEST DESCRIPTION: Composite algorithmic analysis of stool DNA-biomarkers with hemoglobin immunoassay. Quantitative values of individual biomarkers are not reportable and are not associated with individual biomarker result reference ranges. Cologuard is intended for colorectal cancer screening of adults of either sex, 45 years or older, who are at average-risk for colorectal cancer (CRC). Cologuard has been approved for use by the U.S. FDA. The performance of Cologuard was established in a cross sectional study of average-risk adults aged 50-84. Cologuard performance in patients ages 45 to 49 years was estimated by sub-group analysis of near-age groups. Colonoscopies performed for a positive result may find as the most clinically significant lesion: colorectal cancer [4.0%], advanced adenoma (including sessile serrated polyps greater than or equal to 1cm diameter) [20%] or non- advanced adenoma [31%]; or no colorectal neoplasia [45%]. These estimates are derived from a prospective cross-sectional screening study of 10,000 individuals at average risk for colorectal cancer who were screened with both Cologuard and colonoscopy. (Jared Chua et al, N Engl J Med 2014;370(14):6143-1366.) Cologuard may produce a false negative or false positive result (no colorectal cancer or precancerous polyp present at colonoscopy follow up). A negative Cologuard test result does not guarantee the absence of CRC or advanced adenoma (pre-cancer). The current Cologuard screening interval is every 3 years. ([employer] and U.S. Multi-Society Task Force). Cologuard performance data in a 10,000 patient pivotal study using colonoscopy as the reference method can be accessed at the following location: www.[employer]/results. Additional description of the Cologuard test process, warnings and precautions can be found at www.cologuard.com. Stool 07/19/2022 10:0 0 AM CDT 07/22/2022 5:16 PM CDT us Rao Stroud MD LAB BODY FLUIDS AND STOO LS ORDERABLES Final Result [employer] (CLIA #:[id number]) [place] [address] from Last 3 Months or Most Recently Relevant to Health Maintenance Advance Directives For more information, please contact: [phone] * Full Code (Latest Code Status on File) Date Activated Date Inactivated Comments 06/05/2022 1:29 PM 06/07/2022 4:56 PM Care Teams Green Chain Off Bearer Relationship Specialty Start Date End Date Rao Stroud MD [address] [place] [id number] PCP - General Family Medicine 06/06/22
--- OUTSIDE RECORDS SUMMARY | 2024-12-20 15:36 | XMS_ITS | Encounter Summary ---
Author Organization [facility] Address [address] [place] [id number] Care Team Providers Care Terminal Press Operator Name Role Phone Unavailable Primary Care Provider Unavailabl e Encounter Details Date Type Department Care Team (Late st Contact Info) Description 09/25/2018 Abstract [facility] CONVERSION [id number] [place] [address] , Generic Conversion, Social History Tobacco Use Types Packs/Day Years Used Date Smoking Tobacco: Never Assessed Comments Unknown Sex and Gender Information Value Date Recorded Sex Assigned at Not on file Legal Sex Female 8:21 PM CDT Gender Identity Not on file Sexual Orientation Not on file documented as of this encounter Plan of Treatment Not on file documented as of this encounter Visit Diagnoses Not on filedocumented in this encounter
--- OUTSIDE RECORDS SUMMARY | 2024-12-20 15:36 | XMS_ITS | Clinical Summary ---
Author Organization [facility] [employer] Address [address] [place] [address] Care Team Providers Care Internal Medicine Nurse Practitioner Name Role Phone Tg Reaves MD Primary Care Provider [phone] Source Comments [facility] [employer],non-owned Affiliates and Associated Physician Practices is amultiple site organization consisting of ambulatory clinics and hospital sitesin [place]. This disclosure is being madepursuant to the Care Everywhere program and may not contain all information available regarding this patient. Last updated 18.[facility] [employer] Allergies Active Allergy Reactions Criticality Noted Date Comments Acetaminophen Nausea and/or Vomiting 11/05/2017 Ciprofloxacin Swelling 08/24/2017 Hydrocodone Nausea and/or Vomiting 11/05/2017 Hydrocodone-Acetaminophen Nausea and/or Vomiting Medium 05/23/2019 Sumatriptan Rash,Itching,Nausea and/or Vomiting Medium 08/24/2017 Meperidine Nausea and/or Vomiting Medium 11/05/2017 Propranolol Nausea and/or Vomiting Medium 05/23/2019 Propranolol Hcl Nausea and/or Vomiting 11/06/19 18 Medications * Be aware that medications may not be up to date on this document. Alwaysverify current medications with the patient. lisinopril-hyd roCHLOROthiazi de (PRINZIDE; ZESTORETIC) 20-12.5 MG tablet 1 8 Active amitriptyline (ELAVIL) 25 MG tablet 1 8 Active meloxicam (MOBIC) 15 MG tablet 4 8 Active FLUoxetine (PROZAC) 20 MG capsule 1 8 Active nystatin (MYCOSTATIN) 845211 UNIT/GM powder Apply to affected area 2 times daily 60 g 9 Active ketorolac (TORADOL) 10 MG tablet Take 1 tablet by mouth every 8 hours as needed for Pain 15 tablet 9 Active acetaminophen (TYLENOL) 500 MG tablet Take 1 tablet by mouth every 6 hours as needed for Fever or Pain Maximum allowable Acetaminophen amount = 4 Grams (4000 mg) / 24 hours. 30 tablet 9 Active Active Problems Problem Noted Date Diagnosed Date Giant cell tumor 07/22/2018 Digital mucous cyst of finger of right hand 07/2018 Lump or mass in breast 08/23/2017 Breast pain 08/23/2017 Finger mass, right Mass of face Skin lesion Schwannoma Family History Medical History Relation Name Comments Cancer - Breast Father Cancer - Lung Mother Cancer - Breast Other Relation Name Status Comments Father Mother Other Social History Tobacco Use Types Packs/Day Years Used Date Smoking Tobacco: Never Smokeless Tobacco: Never Alcohol Use Standard Drinks/Week Comments Yes 0 (1 standard drink = 0.6 oz pur e alcohol) Comments No Sex and Gender Information Value Date Recorded Sex Assigned at Not on file Legal Sex Female 5:51 PM HEADER BOSS Gender Identity Not on file Sexual Orientation Not on file Last Filed Vital Signs Vital Sign Reading Time Taken Comments Blood Pressure 156/92 05/23/2019 11:14 AM HEADER BOSS Pulse 72 05/23/2019 11:14 AM HEADER BOSS Temperature 36.4 C (97.6 F) 07/28/2018 1:04 PM CDT Respiratory Rate 18 07/09/2018 11:00 AM CDT Oxygen Saturation 97% 05/23/2019 11:14 AM HEADER BOSS Inhaled Oxygen Concentration 21% 07/09/2018 7 :40 AM CDT Weight 117.9 kg (260 lb) 05/23/2019 11:14 AM HEADER BOSS Height 157.5 cm (5' 2) 05/23/2019 11:14 AM HEADER BOSS Body Mass Index 47.55 05/23/2019 11:14 AM HEADER BOSS Plan of Treatment Health Maintenance Due Date Last Done Comments COLOGUARD (AGES 45-75) - COL ON CA SCREENING 1963 COLON MONITORING 1963 COLONOSCOPY - COLON CA SCREENING 1963 CT COLONOGRAPHY - COLON CA SCREENING 1963 Colorectal Cancer Screening 1963 FIT - COLON CA SCREENING 1963 FLEX SIG - COLON CA SCREENING 1963 LIPID TESTING 1963 HIV SCREENING 1978 HEPATITIS C SCREENING 05/26/1981 DTAP/TDAP/TD VACCINES (1 - Tdap) 1982 PNEUMOCOCCAL VACCINE 50+ (1 of 1 - PCV) 2013 ZOSTER VACCINE (1 of 2) 2013 SCREENING FOR DIABETES 08/24/2017 MAMMOGRAM 05/23/2021 05/23/2019, 05/24/2018 Respiratory Syncytial Virus (RSV) Vaccine Pt: or over 60 yrs (1 - Risk 60-74 years 1-dose series) 2023 COVID-19 VACCINE ( - 2023-2 5 season) 2023 DEPRESSION SCREENING 04/20/2024 INFLUENZA VACCINE (#1) 2024 01/10/2015 HEPATITIS B VACCINE Aged Out No longe r eligible based on patient's age to complete this topic HIB VACCINE Aged Out No longer eligi ble based on patient's age to complete this topic HPV VACCINE Aged Out No longer eligi ble based on patient's age to complete this topic MENINGOCOCCAL (Group B) VACCINE SHARED DECISION-MAKING Aged Out No longer eligible based on patient's age to complete this topic MENINGOCOCCAL GROUPS A/C/Y/W VACCINE Aged Out No longer eligible b ased on patient's age to complete this topic Procedures Procedure Name Priority Date/Time Associated Diagnosis Comments MAMMO BILAT DIAGNOSTIC Routine 05/23/2019 10:48 AM HEADER BOSS Lump or mass in breast from Last 3 Months or Most Recently Relevant to Health Maintenance Results * MAMMO BILAT DIAGNOSTIC (05/23/2019 10:48 AM HEADER BOSS) Anatomical Region Laterality Modality Breast Bilateral Mammography 05/23/2019 10:4 5 AM HEADER BOSS Impressions 05/23/2019 11:00 AM HEADER BOSS IMPRESSION: 1.No evidence of malignancy in either breast. 2.Left breast mass has demonstrated long-term stability and is considered benign. No further imaging follow-up is required. ASSESSMENT: BI-RADS Category 2: Benign finding(s). RECOMMENDATION: Bilateral screening mammogram in one year. Findings discussed with the patient by Dr. Guy. This report was electronically signed by DADA MANN M.D. on 05/23/2019 11:00 AM . Narrative 05/23/2019 11:00 AM HEADER BOSS BILATERAL DIAGNOSTIC MAMMOGRAM TARGETED LEFT BREAST ULTRASOUND TECHNIQUE: Images were performed using 3D tomosynthesis images with reconstructed/synthetic 2D images. CAD analysis was performed. DATE: 05/23/2019. HISTORY: 53-year-old female here for short interval follow-up of probably benign left breast mass, followed from 05/06/2017 (initially identified at outside institution). COMPARISON: 05/24/2018 and 05/06/2017 mammogram and ultrasound. BREAST COMPOSITION: The breasts are heterogeneously dense, which may obscure small masses. FINDINGS: There is no suspicious mass, architectural distortion, or microcalcification in either breast on 2D or 3D images. There has been no substantial change from the prior study. Targeted ultrasound was performed in the area of previously identified probably benign mass in the left breast 11:00 3 cm from the nipple. There is an unchanged oval hypoechoic mass measuring 1.0 x 0.6 x 0.7 cm. Mass is stable in size and appearance from 2018. Sarah Michaels MD MAMMO ORDERABLES Final Res ult from Last 3 Months or Most Recently Relevant to Health Maintenance Insurance [employer] Care Teams Internal Medicine Nurse Practitioner Relationship Specialty Start Date End Date Tg Reaves MD PCP - General 04/30/17
--- OUTSIDE RECORDS SUMMARY | 2024-12-20 15:36 | XMS_ITS | Clinical Summary ---
Author Organization [facility] Address [address] [place] [id number] Care Team Providers Care Cost And Risk Analysis Manager Name Role Phone Unavailable Primary Care Provider Unavailabl e Social History Tobacco Use Types Packs/Day Years Used Date Smoking Tobacco: Never Assessed Comments Unknown Sex and Gender Information Value Date Recorded Sex Assigned at Not on file Legal Sex Female 8:21 PM CDT Gender Identity Not on file Sexual Orientation Not on file Plan of Treatment Health Maintenance Due Date Last Done Comments Cervical Cancer Screening Pa p Smear (Age 30 to 64) Every 3 Years 1963 Colorectal Cancer Screening Colonoscopy (10 Years) 1963 Annual Physical 1966 Hepatitis C 1981 DTaP, Tdap and Td Vaccines ( 1 - Tdap) 1982 Cervical Cancer Screening Pa p with HPV Testing (Age 30 to 64) Every 5 Years 1993 Cervical Cancer Screening with HPV 1993 Mammogram Screening 2003 Pneumococcal Vaccine: 50+ Ye ars (1 of 1 - PCV) 2013 Zoster Vaccines (1 of 2) 2013 COVID-19 Vaccine (2023-2 5 season) 2023 RSV Immunization or 60+ Years (1 - 1-dose 75+ series) 2038 Meningococcal B Vaccine Aged Out No l onger eligible based on patient's age to complete this topic Meningococcal Vaccine Aged Out No rich warren eligible based on patient's age to complete this topic RSV Immunizations Under 20 Months Aged Out No longer eligible based on patient's age to complete this topic
--- OUTSIDE RECORDS SUMMARY | 2024-12-20 15:36 | XMS_ITS | Encounter Summary ---
Author Organization [facility] Address [address] [place] [address] Care Team Providers Care Mortgage Processing Clerk Name Role Phone Tg Reaves MD Primary Care Provider [phone] Encounter Details Date Type Department Care Team (Late st Contact Info) Description 06/23/2018 Telephone [facility] [address] [place] [address] Keyanna Becker MD [address] [facility] [place] [address] Social History Tobacco Use Types Packs/Day Years Used Date Smoking Tobacco: Never Smokeless Tobacco: Never Alcohol Use Standard Drinks/Week Comments Yes 0 (1 standard drink = 0.6 oz pur e alcohol) Comments Unknown Sex and Gender Information Value Date Recorded Sex Assigned at Not on file Legal Sex Female 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 L FILE CLERK documented in this encounter Plan of Treatment Not on file documented as of this encounter Visit Diagnoses Not on filedocumented in this encounter Care Teams Mortgage Processing Clerk Relationship Specialty Start Date End Date Tg Reaves MD PCP - General 04/30/17 documented as of this encounter
== END 2024-12-20 15:33 | disposition home or self-care (01) ==
PROVIDERS: PCP Physician Assistant; Visit Provider Physician Assistant
DX: M51.369 Other intervertebral disc degeneration, lumbar region without mention of lumbar back pain or lower extremity pain (principal)
CPT/HCPCS: 72100